=== PATIENT | male | born 1980 | race Caucasian/White ===

== ENCOUNTER 2023-09-06 06:38 | Day surgery (SDC) | payer OTHER ==
[2023-09-06] MEDS: LACTATED RINGERS 1,000 ML IV ONE (07:11)
[2023-09-06] MEDS ORDERED: PROPOFOL 10 MG/ML 20 ML VIAL IV ONE (07:41)
[2023-09-06 07:55] VITALS: TEMP 97.7
--- NOTE | 2023-09-06 08:05 | P.PCN ---
Date of Procedure: 09/06/23 Procedure(s) Performed: Brief history: Patient is a [id number] white male scheduled for an elective upper endoscopy as well as colonoscopy as a part of evaluation of[Long-standing history of GERD/intermittent dysphagia to solids and screening for colon cancer Procedure performed: Esophagogastroduodenoscopy with biopsy and dilation Colonoscopy With snare polypectomy Preoperative diagnosis: GERD/intermittent dysphagia to solids Screening for colon cancer Anesthesia: MAC Procedure: After informed consent was obtained from the patient was brought into the endoscopy unit and IV sedation was administered by anesthesia under continuous monitoring. Initially upper endoscopy was done. The Olympus GF 160 video endoscope was inserted inserted into the mouth and esophagus intubated without any difficulty and was gradually advanced into the stomach and duodenum and carefully examined. The bulb and second part of the duodenum appeared normal. The scope was then withdrawn into the stomach adequately insufflated with air and upon careful examination the antrum Had mild gastritis and biopsies were done from this area. Mucosa of the body, cardia and fundus appeared normal. The scope was then withdrawn into the esophagus. The GE junction was located at 40 cm to the incisors. It appeared regular 2 superficial erosions consistent with LA grade B reflux esophagitis. There was a distal esophageal stricture which was dilated using 15-18 mm TTS balloon for 30 seconds. Multiple biopsies were done from mid and distal esophagus to rule out eosinophilic esophagitis.. Rest of the esophagus appeared normal. Patient tolerated the procedure well. At this time the patient continued to remain sedation. Initial digital rectal examination was normal. Olympus CF 160 video colonoscope was then inserted into the rectum and gradually advanced to the cecum without any difficulty. Careful examination was performed as the scope was gradually being withdrawn. The prep was excellent. The cecum, ascending colon, transverse colon, descending colon, sigmoid colon and rectum appeared normal. In the distal rectum there was a 7 mm polyp that was removed by cold snare polypectomy. The sigmoid diverticulosis seen. Retroflexion was performed in the rectum and no lesions were noted. Patient tolerated the procedure well. Impression: 1. Upper endoscopy revealed distal esophageal stricture status post balloon dilation using 15-18 mm balloon, LA grade B reflux esophagitis and mild antral gastritis 2. Colonoscopy Revealed a 7 mm distal rectal polyp status post cold snare polypectomy and scattered sigmoid diverticulosis. Recommendations: Findings of this examination were discussed with the patient as well as[His family. He was advised to follow with the biopsy results. Remain on clear liquids for 2 hours.If the biopsy the colon polyp reveals adenoma he can have a repeat colonoscopy in 5 years. Continue with omeprazole 20 mg daily and follow antireflux measures.]
[2023-09-06] MEDS ORDERED: LACTATED RINGERS 1,000 ML IV SCH (08:15)
[2023-09-06 08:36] VITALS: BP 129/74; PULSE 74
[2023-09-06 08:37] VITALS: RESP 18
== END 2023-09-06 08:42 | disposition home or self-care (01) ==
LOC: ORWHC2ENDO 06:38
PROVIDERS: ATTEND Internal Medicine Gastroenterology
DX: Z12.11 Encounter for screening for malignant neoplasm of colon (principal); K29.50 Unspecified chronic gastritis without bleeding; K22.2 Esophageal obstruction; D72.10 Eosinophilia, unspecified; D12.8 Benign neoplasm of rectum; K21.00 Gastro-esophageal reflux disease with esophagitis, without bleeding; K57.30 Diverticulosis of large intestine without perforation or abscess without bleeding; I10 Essential (primary) hypertension; G47.33 Obstructive sleep apnea (adult) (pediatric); E07.9 Disorder of thyroid, unspecified; F32.A Depression, unspecified; F41.9 Anxiety disorder, unspecified; F12.90 Cannabis use, unspecified, uncomplicated; F17.290 Nicotine dependence, other tobacco product, uncomplicated; Z79.890 Hormone replacement therapy; Z79.899 Other long term (current) drug therapy
CPT/HCPCS: 88305; 45385; 43239; 43249; J2704; C1726